=== PATIENT | female | born 1980 | race Caucasian/White ===

== ENCOUNTER 2020-11-19 09:13 | Emergency (ER) | payer OTHER ==
--- NOTE | 2020-11-19 09:48 | EDM.PDOC ---
ED HPI GENERAL MEDICAL PROBLEM - General Chief Complaint: Lower Extremity Injury/Pain Stated Complaint: INJURY LEFT KNEE Time Seen by Provider: 11/19/20 09:46 Source of Information: Reports: Patient History Limitations: Reports: No Limitations - History of Present Illness INITIAL COMMENTS - FREE TEXT/NARRATIVE: Is a 40-year-old female presents today for left knee pain. Patient dates she was walking when she slipped on some ice and twisted her knee. Patient fell at her knee to static place. Patient that she is able to put slight pressure in there but still has some pain. Patient denies any other injuries did not hit her head. Left knee Pain Score (Numeric/FACES): 7 - Related Data Allergies Allergy/AdvReac Type Severity Reaction Status Date / Time No Known Allergies Allergy Verified 11/19/20 09:39 Home Meds: Home Meds . 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 Musculoskeletal Surgical History: Reports: Other (See Below) Other Musculoskeletal Surgeries/Procedures:: clavicle fracture Right Social & Family History - Family History Cardiac: Reports: Hypertension - Tobacco Use Tobacco Use Status *Q: Never Tobacco User - Caffeine Use Caffeine Use: Reports: None - Recreational Drug Use Recreational Drug Use: No Review of Systems - Review of Systems Review Of Systems: See Below Constitutional: Reports: No Symptoms Eyes: Reports: No Symptoms Ears: Reports: No Symptoms Nose: Reports: No Symptoms Mouth/Throat: Reports: No Symptoms Respiratory: Reports: No Symptoms Cardiovascular: Reports: No Symptoms GI/Abdominal: Reports: No Symptoms Genitourinary: Reports: No Symptoms Musculoskeletal: Reports: Leg Pain Skin: Reports: No Symptoms Neurological: Reports: No Symptoms Psychiatric: Reports: No Symptoms ED EXAM, GENERAL - Physical Exam Exam: See Below Exam Limited By: No Limitations General Appearance: Alert, WD/WN Respiratory/Chest: No Respiratory Distress Cardiovascular: Normal Peripheral Pulses Peripheral Pulses: 2+: Popliteal (L), Popliteal (R), Dorsalis Pedis (L), Dorsalis Pedis (R) Extremities: Normal Inspection, Normal Range of Motion, Non-Tender. No: Joint Swelling Neurological: Alert, Oriented Course - Vital Signs Last Recorded V/S: Last Vital Signs Temp 96.9 F 11/19/20 09:39 Pulse 73 11/19/20 09:39 Resp 16 11/19/20 09:39 BP 124/71 11/19/20 09:39 Pulse Ox 98 11/19/20 09:39 - Orders/Labs/Meds Orders: Active Orders 24 hr Category Date Time Status DME for Discharge [COMM] Stat Oth 11/19/20 11:36 Ordered Meds: Medications Discontinued Medications Generic Name Dose Route Start Last Admin Trade Name Hailee PRN Reason Stop Dose Admin Ibuprofen 800 mg 11/19/20 09:51 11/19/20 09:57 Motrin PO 11/19/20 09:52 800 mg ONETIME ONE Administration - Re-Assessments/Exams Free Text/Narrative Re-Assessment/Exam: 11/19/20 11:37 What you are ordering knee immobilizer left knee crutches Why you are ordering it help with pain and ambulation How it will benefit patient help with ambulation How long is patient to use it 7-10 days Free Text/Narrative Re-Assessment/Exam: 11/19/20 11:38 Patient made aware of x-ray findings unclear factors will have patient follow-up with orthopedics this week patient patient knee immobilizer and crutches and told to limit weightbearing. Departure - Departure Time of Disposition: 11:38 Disposition: Home, Self-Care 01 Condition: Good Clinical Impression: Knee pain, Patella fracture - Discharge Information *PRESCRIPTION DRUG MONITORING PROGRAM REVIEWED*: Not Applicable *COPY OF PRESCRIPTION DRUG MONITORING REPORT IN PATIENT STACEY: Not Applicable Instructions: Knee Sprain, Adult, [id number], How to Use a Knee Immobilizer, [id number] Referrals: Gaurav Goode [employer] [Primary Care Provider] - Forms: ED Department Discharge Additional Instructions: The following information is given to patients seen in the emergency department who are being discharged to home. This information is to outline your options for follow-up care. We provide all patients seen in our emergency department with a follow-up referral. The need for follow-up, as well as the timing and circumstances, are variable depending upon the specifics of your emergency department visit. If you don't have a primary care physician on staff, we will provide you with a referral. We always advise you to contact your personal physician following an emergency department visit to inform them of the circumstance of the visit and for follow-up with them and/or the need for any referrals to a consulting specialist. The emergency department will also refer you to a specialist when appropriate. This referral assures that you have the opportunity for follow-up care with a specialist. All of these measure are taken in an effort to provide you with optimal care, which includes your follow-up. Under all circumstances we always encourage you to contact your private physician who remains a resource for coordinating your care. When calling for follow-up care, please make the office aware that this follow-up is from your recent emergency room visit. If for any reason you are refused follow-up, please contact the [facility] Emergency Department at and asked to speak to the emergency department charge nurse. Please follow up with your primary care physician. If you do not have a primary care physician, see below: [facility] [address], [address] [place] [address] Please use the crutches and knee immobilizer try not to put any weight on to the left leg. Please see the orthopedics this week we have a number attached above you have any increased pain numbness or other symptoms please return to the ED. Sepsis Event Note (ED) - Evaluation Sepsis Screening Result: No Definite Risk - Focused Exam Vital Signs: Vital Signs Temp Pulse Resp BP Pulse Ox 11/19/20 09:39 96.9 F 73 16 124/71 98 - My Orders Last 24 Hours: My Active Orders 11/19/20 11:36 DME for Discharge [COMM] Stat - Assessment/Plan Last 24 Hours: My Active Orders 11/19/20 11:36 DME for Discharge [COMM] Stat Plan: Patient is a 40-year-old female presents today for left knee pain. Patient has good pulses of the knee no signs of swelling. Patient have x-ray and reassess.
[2020-11-19] MEDS ORDERED: Ibuprofen 800 MG Tab PO ONE (09:51)
--- NOTE | 2020-11-19 11:31 | CR ---
Indication: Pain, fell and twisted. Technique: Left knee 3 views. Comparison: None. Findings: There is a linear osseous density inferior to the patella which could represent an avulsion fracture fragment versus a loose body. No other acute fracture identified. The patella is normally aligned. Joint spaces are well preserved. Small knee joint effusion. Subcutaneous edema overlying the knee. Impression: 1. Linear osseous density inferior to the patella could represent avulsion fracture fragment or loose body. 2. Small knee joint effusion. 3. Subcutaneous edema overlying the knee. Dictated by Sydnee Radford MD @ Nov 19 2020 11:26AM Signed by Dr. Sydnee Radford @ Nov 19 2020 11:29AM
[2020-11-19 11:57] VITALS: BP 129/82; PULSE 70
== END 2020-11-19 11:56 | disposition home or self-care (01) ==
LOC: MW.ED 09:13
DX: S82.002A Unspecified fracture of left patella, initial encounter for closed fracture (principal); X50.9XXA Other and unspecified overexertion or strenuous movements or postures, initial encounter
CPT/HCPCS: 73562; 99283; A9270